=== PATIENT | female | born 1960 | race Caucasian/White ===

== ENCOUNTER 2018-07-07 20:05 | Emergency (ER) | payer MEDICAID ==
[~2018-07-07] VITALS: Ht 165.1 cm; Wt 81.6 kg
[~2018-07-07 20:05] MED LIST: ALPR0.25 PO; DICL50TA7 PO; LISI10TA5 PO
== END 2018-07-07 20:52 | disposition home or self-care (01) ==
LOC: ER 20:12
DX: M26.622 Arthralgia of left temporomandibular joint (principal); F41.9 Anxiety disorder, unspecified; I10 Essential (primary) hypertension; Z98.890 Other specified postprocedural states; Z79.899 Other long term (current) drug therapy
CPT/HCPCS: 99281; A4606; Z7502